=== PATIENT | female | born 1990 | race African-American/Black ===

== ENCOUNTER 2018-01-25 22:47 | Emergency (ER) | payer OTHER | END 2018-01-25 23:23 | LOC: E/R 23:23 | DX: Z02.89 Encounter for other administrative examinations (principal); R40.2142 Coma scale, eyes open, spontaneous, at arrival to emergency department; R40.2252 Coma scale, best verbal response, oriented, at arrival to emergency department; R40.2362 Coma scale, best motor response, obeys commands, at arrival to emergency department | CPT/HCPCS: 99283 ==